=== PATIENT | male | born 1990 | race Caucasian/White ===

== ENCOUNTER 2021-04-21 12:34 | Emergency (ER) | payer BC, SELFPAY ==
--- NOTE | 2021-04-21 12:37 | ECG_ITS ---
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 Measurements Intervals [place] Rate: 92 P: 1 ID: 133 QRS: 7 QRSD: 106 T: 28 QT: 330 QTc: 409 Interpretive Statements SINUS RHYTHM WITH SINUS ARRHYTHMIA NONSPECIFIC T-WAVE ABNORMALITY WARNING: DATA QUALITY MAY AFFECT INTERPRETATION No previous ECG available for comparison Electronically Signed On 04-21-2021 16:26:43 CDT by Deb Cox M.D. [id number]
--- NOTE | 2021-04-21 12:38 | XR_ITS ---
WS: [id number] Portable AP upright chest, 04/21/2021 Clinical Data: Cough Comparison: PA and lateral chest, 04/23/2006. Findings: No nodules, masses or effusions are seen. The heart is normal. The pulmonary vascularity is not increased. No pneumonia or pneumothorax is seen. Monitor leads are on the chest wall. XR/XR chest 1V portable [id number] Impression: Negative chest.
--- NOTE | 2021-04-21 12:38 | W.ED.CHESTPA ---
HPI - Chest Pain General: Chief Complaint: Chest Pain Stated Complaint: CHEST PRESSURE, TIGHTNESS Time Seen by Provider: 04/21/21 12:37 History of Present Illness: HPI narrative: This patient has a 30-year-old male who presents to the emergency department complaint of chest pain and chest pressure. Dizziness and nausea. 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 Patient is physically fit and recently had a physical set a good bill of health and has never had any medical problems. Patient states this chest pressure and heaviness come on suddenly. Chest pressure and heaviness was resolved after 2 nitros. Patient was also given full aspirin. Patient is concerned because family members on his mother side all had major heart attacks at the age of 40 or younger. Patient denies smoking denies heavy drinking. Does dip snuff daily. We will do medical evaluation treat as needed. Patient works for [employer]. MD complaint: chest pain, chest heaviness and chest discomfort Onset (ago): hour(s) Timing of current episode: now resolved Prior episodes: No Onset: during exertion Pain location: substernal Pain radiation: none Severity: moderate Pain scale (0-10): 6 Quality: aching, heaviness and dull Relieving factors: nitroglycerin Exacerbating factors: exertion Associated symptoms: Reports dyspnea and nausea; Deny fever(s) or palpitations Review of Systems General: Reports: 10 or more systems reviewed and unremarkable except in HPI and below Const: Denies: fever(s), chills, body aches or fatigue Eyes: Denies: change in vision or blurry vision ENMT: Denies: throat pain, hoarseness or mouth pain Card: Reports: chest pain; Denies: palpitations, irregular heart rhythm, edema, swelling of feet/ankles or lightheadedness Resp: Reports: dyspnea GI: Reports: nausea : Denies: flank pain, dysuria, urinary frequency, urinary urgency or urinary hesitancy Musc: Denies: neck pain, back pain, extremity pain, extremity swelling, joint pain, joint swelling, joint redness, joint warmth or limited range of motion Skin/Breast: Denies: rash, pruritus, erythema or skin tenderness Neuro: Denies: headache(s), numbness in extremities or weakness in extremities Psych: Denies: anxiety or depression PFSH ED PFSH: Social History Smoking and tobacco status: current every day smoker smokeless tobacco Alcohol intake: current Alcohol intake frequency: holidays/special occasions only Physical Exam Const: COMMON NORMALS: no acute distress, average body habitus, patient oriented x3, no limitations, healthy appearing, alert and well nourished HENMT: COMMON NORMALS: normocephalic, atraumatic, hearing grossly normal bilaterally, external ears normal, EAC's normal, TM's normal bilaterally, Normal external nose present, Normal nasal mucous membranes and turbinates present, moist oral mucous membranes, oropharynx normal, dentition normal and gingiva normal HEAD & SCALP: normocephalic and atraumatic NOSE: Normal external nose present and Normal nasal mucous membranes and turbinates present EXTERNAL EAR: Yes external ears normal EXTERNAL AUDITORY CANAL: EAC's normal TYMPANIC MEMBRANE: TM's normal bilaterally Neck/C-Spine: COMMON NORMALS: full ROM, no lymphadenopathy, supple, no meningeal signs, no JVD, Thyroid normal and No carotid bruits THYROID: Thyroid normal Chest: COMMONS NORMALS: normal inspection of the chest, normal palpation of entire chest wall, normal inspection of the breasts and normal palpation of the breasts Breast/axilla inspection: Yes normal inspection of the breasts BREAST/AXILLA PALPATION: Yes normal palpation of the breasts Resp: COMMON NORMALS: normal respiratory effort, No retractions, No use of accessory muscles, clear to auscultation bilaterally and percussion normal AUSCULTATION: clear to auscultation bilaterally PERCUSSION: percussion normal Cardio: COMMON NORMALS: no JVD, regular rate, regular rhythm, S1 normal heart sound present, S2 normal heart sound present, No gallops present (Cardio), No clicks present (Cardio), No murmurs present (Cardio), No rub (Cardio) and Peripheral pulses 2+ throughout RATE: regular rate RHYTHM: regular rhythm HEART SOUNDS: S1 normal heart sound present and S2 normal heart sound present PERIPHERAL PULSES: Peripheral pulses 2+ throughout GI: COMMON NORMALS: Normal to inspection, nondistended, normoactive bowel sounds present, Soft to palpation, non-tender, No hepatosplenomegaly present, no masses and no bruits PALPATION: Yes Soft to palpation and Yes No hepatosplenomegaly present : COMMON NORMALS: Yes no CVA tenderness BLADDER/KIDNEY EXAM: Yes no CVA tenderness Back/Pelvis: COMMON NORMALS: no CVA tenderness, thoracic and lumbar spine normal to inspection, no thoracic nor lumbar tenderness, thoraco-lumbar ROM normal and straight leg raise negative bilaterally Extremity: COMMON NORMALS: normal to inspection, full ROM, capillary refill normal, no joint enlargement, no clubbing, cyanosis or edema, no calf tenderness and no pedal edema Neuro: COMMON NORMALS: patient oriented x3 SENSORIUM/ORIENTATION: Yes alert MENINGEAL SIGNS: Yes no meningeal signs Course Reevaluation(s): Reevaluation #1: Patient states feeling much improved. States he did not receive IV morphine was ordered. Patient does have a long history of gastric reflux issues. We did discuss at length with options. Patient has had negative EKG negative chest x-ray negative lab values. We will wait on a 2-hour troponin. However we will give the patient a GI cocktail. We will continue to monitor patient Time: 13:51 Reevaluation #2: Patient is feeling much improved. States he feels great. States he did not like the taste of GI cocktail but has improved his symptoms. Patient does have a long history of reflux. Patient blood pressure been running around 140 systolic. Discussed at length with patient about high blood pressure issues patient will keep a blood pressure log as instructed. Try to cut out salt and energy drinks and caffeine. Patient will follow up with PCP about blood pressure issues. We did discuss at length with patient about following up with cardiology for an outpatient stress test and also following up with GI for his reflux issues. Patient be discharged home per his request Time: 14:37 Vital Signs: Vital signs: Vital Signs Temperature 98.0 F 04/21/21 12:39 Pulse Rate 102 H 04/21/21 12:39 Respiratory Rate 18 04/21/21 12:39 Blood Pressure 146/69 04/21/21 12:39 Pulse Oximetry 97 04/21/21 12:39 MDM - Chest Pain MDM Narrative: Medical decision making narrative: This patient has a 30-year-old male who presents to the emergency department complaint of chest pain and chest pressure. Dizziness and nausea. 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 Patient is physically fit and recently had a physical set a good bill of health and has never had any medical problems. Patient states this chest pressure and heaviness come on suddenly. Chest pressure and heaviness was resolved after 2 nitros. Patient was also given full aspirin. Patient is concerned because family members on his mother side all had major heart attacks at the age of 40 or younger. Patient denies smoking denies heavy drinking. Does dip snuff daily. We will do medical evaluation treat as needed. Patient works for [employer]. Patient states feeling much improved. States he did not receive IV morphine was ordered. Patient does have a long history of gastric reflux issues. We did discuss at length with options. Patient has had negative EKG negative chest x-ray negative lab values. We will wait on a 2-hour troponin. However we will give the patient a GI cocktail. We will continue to monitor patient Patient is feeling much improved. States he feels great. States he did not like the taste of GI cocktail but has improved his symptoms. Patient does have a long history of reflux. Patient blood pressure been running around 140 systolic. Discussed at length with patient about high blood pressure issues patient will keep a blood pressure log as instructed. Try to cut out salt and energy drinks and caffeine. Patient will follow up with PCP about blood pressure issues. We did discuss at length with patient about following up with cardiology for an outpatient stress test and also following up with GI for his reflux issues. Patient be discharged home per his request Medical Records: Attestation: I reviewed the patient's medical records. Lab Data: Attestation: I reviewed the patient's lab results. Labs: Lab Results 04/21/21 04/21/21 04/21/21 Range/Units 12:55 12:55 12:55 WBC 9.8 (4.0-10.0) 10^3/ uL RBC 5.04 (4.1-5.3) 10^6/u L Hgb 14.8 (11.7-16.6) g/dL Hct 41.8 L (42.0-52.0) % MCV 82.9 (80-94) fL MCH 29.4 (28.0-34.0) pg MCHC 35.4 (30.0-36.0) g/dL RDW 12.3 (12.1-15.1) % Plt Count 261 (130-400) 10^3/c mm MPV 10.8 H (7.4-10.4) fL Neut % (Auto) 84.2 % Lymph % (Auto) 11.4 % Dickson % (Auto) 3.7 % Eos % (Auto) 0.0 % Baso % (Auto) 0.4 % Neut # (Auto) 8.25 H (1.8-7.7) 10^3/u L Lymph # (Auto) 1.1 (0.8-4.8) 10^3/u L Dickson # (Auto) 0.4 (0.2-0.9) 10^3/u L Eos # (Auto) 0.0 (0.0-0.8) 10^3/u L Baso # (Auto) 0.0 (0.0-0.1) 10^3/u L Nucleated RBC % (a uto) 0 % Nucleated RBCs # 0.0 /100WBC PT (12.1-14.9) SECO NDS INR (0.8-1.2) APTT (23.9-36.7) SECO NDS D-Dimer (0-0.59) ug/mIFE U Sodium 136 (136-145) mmol/L Potassium 4.0 (3.5-5.1) mmol/L Chloride 99 (98-107) mmol/L Carbon Dioxide 24 (22-29) mmol/L Anion Gap 17.0 (5-19) BUN 11 (6-20) mg/dL Creatinine 0.8 (0.7-1.2) mg/dL GFR Calculation 112.8 (90-130) mL/min Glucose 162 H (65-115) mg/dL Calculated Osmolal ity 285 (285-295) mOsm/k g Calcium 9.3 (8.5-10.5) mg/dL Total Bilirubin 0.3 (0.15-1.2) mg/dL AST 19 (0-40) U/L ALT 19 (0-41) U/L Alkaline Phosphata se 51 (40-130) IU/L Troponin T Baselin e 6 (0-15) ng/L NT-Pro-B Natriuret Pep 14 (0-125) pg/mL Total Protein 6.8 (6.6-8.7) g/dL Albumin 5.2 (3.5-5.2) g/dL Globulin 1.6 (1.3-4.6) g/dL 04/21/21 Range/Units 13:00 WBC (4.0-10.0) 10^3/ uL RBC (4.1-5.3) 10^6/u L Hgb (11.7-16.6) g/dL Hct (42.0-52.0) % MCV (80-94) fL MCH (28.0-34.0) pg MCHC (30.0-36.0) g/dL RDW (12.1-15.1) % Plt Count (130-400) 10^3/c mm MPV (7.4-10.4) fL Neut % (Auto) % Lymph % (Auto) % Dickson % (Auto) % Eos % (Auto) % Baso % (Auto) % Neut # (Auto) (1.8-7.7) 10^3/u L Lymph # (Auto) (0.8-4.8) 10^3/u L Dickson # (Auto) (0.2-0.9) 10^3/u L Eos # (Auto) (0.0-0.8) 10^3/u L Baso # (Auto) (0.0-0.1) 10^3/u L Nucleated RBC % (a uto) % Nucleated RBCs # /100WBC PT 13.30 (12.1-14.9) SECO NDS INR 0.98 (0.8-1.2) APTT 24.8 (23.9-36.7) SECO NDS D-Dimer <= 0.27 (0-0.59) ug/mIFE U Sodium (136-145) mmol/L Potassium (3.5-5.1) mmol/L Chloride (98-107) mmol/L Carbon Dioxide (22-29) mmol/L Anion Gap (5-19) BUN (6-20) mg/dL Creatinine (0.7-1.2) mg/dL GFR Calculation (90-130) mL/min Glucose (65-115) mg/dL Calculated Osmolal ity (285-295) mOsm/k g Calcium (8.5-10.5) mg/dL Total Bilirubin (0.15-1.2) mg/dL AST (0-40) U/L ALT (0-41) U/L Alkaline Phosphata se (40-130) IU/L Troponin T Baselin e (0-15) ng/L NT-Pro-B Natriuret Pep (0-125) pg/mL Total Protein (6.6-8.7) g/dL Albumin (3.5-5.2) g/dL Globulin (1.3-4.6) g/dL Imaging Data^: CXR: Attestation: I personally reviewed and interpreted this imaging study as follows: Radiologist's impression: Impression: Negative chest. EKG Data^: EKG 1: Attestation: I personally reviewed and interpreted this EKG as follows: EKG interpretation date: 04/21/21 EKG interpretation time: 12:50 Prior EKG tracings: not available for review Ischemic changes: non-specific ST-T wave changes Interpretation: Sinus rhythm with sinus arrhythmia heart rate 92 nonspecific T wave changes. Borderline EKG EKG 2: Attestation: I personally reviewed and interpreted this EKG as follows: EKG interpretation date: 04/21/21 EKG interpretation time: 14:28 Prior EKG tracings: available for review Interpretation: Normal sinus rhythm heart rate 77 nonspecific EKG changes Discharge Plan Discharge Patient Disposition: Home Clinical Impression: Atypical chest pain, Gastroesophageal reflux disease, Benign essential HTN Condition: Stable Prescriptions: No Action No Known Home Medications RF: 0 Discharge Orders: Discharge ED (Routine); Ordered 04/21/21 Ordered By: Juan Antonio Cook Referrals: Elton Garcia MD [Physician] - Jeremie Garrison M.D [Physician] - Discharge Diet: Advance as tolerated Discharge Activity: Resume usual activity Patient Instructions: Opioid Safety Activity Restrictions/Additional Instructions: Encourage p.o. fluids. Try to avoid salt caffeine and energy drinks. Follow-up with cardiology as instructed for possible outpatient evaluation and stress test. Follow-up with GI as needed for possible EGD. For chronic gastric reflux disease. Return to the emergency department if symptoms fail to improve or worsen. Coding Level of Care Code ED Webfed Offset Press Operator for Chg Fwd Exam Comprehensive
[2021-04-21 12:39] VITALS: BP 146/69; PULSE 102; RESP 18; TEMP 36.7; O2SAT 97; BMI 32.1
[2021-04-21] MEDS: sodium chloride 0.9% 500 ML IV (12:59)
[2021-04-21 13:02] LABS: Basophils % 0.4 %; Hematocrit 41.8 % (42.0-52.0); Hemoglobin 14.8 g/dL (11.7-16.6); Lymphocytes # 1.1 10^3/uL (0.8-4.8); Lymphocytes % 11.4 %; Mean Corpuscular HGB Conc 35.4 g/dL (30.0-36.0); Mean Corpuscular Hemoglobin 29.4 pg (28.0-34.0); Mean Corpuscular Volume 82.9 fL (80-94); Mean Platelet Volume 10.8 fL (7.4-10.4); Monocytes # 0.4 10^3/uL (0.2-0.9); Monocytes % 3.7 %; Neutrophils # 8.25 10^3/uL (1.8-7.7); Neutrophils % 84.2 %; Nucleated Red Blood Cells % 0 %; Platelet Count 261 10^3/cmm (130-400); Red Blood Count 5.04 10^6/uL (4.1-5.3); Red Cell Distribution Width 12.3 % (12.1-15.1); White Blood Count 9.8 10^3/uL (4.0-10.0)
[2021-04-21 13:27] LABS: Troponin(5th) Baseline 6 ng/L (0-15)
[2021-04-21 13:29] LABS: INR 0.98 (0.8-1.2)
[2021-04-21 13:30] LABS: Partial Thromboplastin Time 24.8 SECONDS (23.9-36.7)
[2021-04-21 13:33] LABS: D Dimer <= 0.27 ug/mIFEU (0-0.59)
[2021-04-21 13:34] LABS: Alanine Aminotransferase 19 U/L (0-41); Albumin Level 5.2 g/dL (3.5-5.2); Alkaline Phosphatase 51 IU/L (40-130); Aspartate Amino Transferase 19 U/L (0-40); Blood Urea Nitrogen 11 mg/dL (6-20); Calcium 9.3 mg/dL (8.5-10.5); Carbon Dioxide 24 mmol/L (22-29); Chloride 99 mmol/L (98-107); Globulin 1.6 g/dL (1.3-4.6); Glomerular Filtration Rate 112.8 mL/min (90-130); Glucose 162 mg/dL (65-115); NT Pro B Type Natriuretic Pept 14 pg/mL (0-125); Osmolality Calculated 285 mOsm/kg (285-295); Sodium 136 mmol/L (136-145); Total Bilirubin 0.3 mg/dL (0.15-1.2); Total Protein 6.8 g/dL (6.6-8.7)
[2021-04-21] MEDS: lidocaine 2% viscous 15 ML, aluminum-mag hydrox-simethicon 30 ML, sucralfate oral liq 1 GM PO (14:18)
--- NOTE | 2021-04-21 14:37 | ECG_ITS ---
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 Measurements Intervals [place] Rate: 77 P: 46 TN: 186 QRS: 7 QRSD: 99 T: 15 QT: 364 QTc: 413 Interpretive Statements SINUS RHYTHM POSSIBLE LEFT VENTRICULAR HYPERTROPHY [VOLTAGE CRITERIA PLUS LAE OR QRS WIDENING] Compared to ECG 04/21/2021 12:50:01 Sinus arrhythmia no longer present T-wave abnormality no longer present Electronically Signed On 04-21-2021 16:32:19 CDT by Deb Cox M.D. [id number]
[2021-04-21 15:15] VITALS: BP 143/75; PULSE 80; RESP 22; O2SAT 94
--- NOTE | 2021-04-21 15:16 | PC.NURSE ---
vitals printed in chart
== END 2021-04-21 15:16 | disposition home or self-care (01) ==
PROVIDERS: Emergency Provider Emergency Medicine
DX: R07.89 Other chest pain (principal); K21.9 Gastro-esophageal reflux disease without esophagitis; I10 Essential (primary) hypertension; F17.210 Nicotine dependence, cigarettes, uncomplicated
CPT/HCPCS: 71045; 80053; 83880; 84484; 85025; 85378; 85610; 85730; 93005; 96361; 96374; 96375; 99284; J7040

== ENCOUNTER 2021-04-22 09:00 | Outpatient (CLI) | payer BC, SELFPAY | END 2021-04-22 09:01 | disposition home or self-care (01) | LOC: LAB 05-19 16:08 | PROVIDERS: PCP Nurse Practitioner Family; Visit Provider Nurse Practitioner Family | DX: R07.89 Other chest pain (principal); I10 Essential (primary) hypertension | CPT/HCPCS: 80061; 83036; 84443 ==

== ENCOUNTER 2021-04-29 09:35 | Outpatient (CLI) | payer BC, SELFPAY ==
[2021-04-29 09:50] VITALS: BMI 32.1
--- NOTE | 2021-04-29 09:51 | NMCV_ITS ---
NM rayo perf SPECT r/s* [id number] Boris Lemus Age: 30 Gender: M : 1990 Exam Date: 04/29/2021 11:18 Ordering Phys: Lisa Loving APRN Technologist: KENDRICK Patterson Exam [facility]: [facility] Indications: CHEST PAIN STRESS TEST [facility] IMAGE PROTOCOL Rest/Stress 1 Exercise Day Radiopharmaceutical Dose (mCi) Administration Site Administered by Rest: Tc-99m 10.6 IV KENDRICK Garrett Sestamibi Stress:Tc-99m 32.6 IV KENDRICK Garrett Sestamibi Rest: 29-Apr-2021 60 Discovery 630 Stress: 29-Apr-2021 15 Discovery 630 Radiopharmaceutical was injected at 85 % maximum heart rate. Images obtained in supine and prone position. SPECT RESULTS Technical Quality: Excellent Raw Data Analysis: Normal Image Corrections: No attenuation or motion correction applied Summed Stress Score: 0 Summed Rest Score: 0 Summed Difference Score: 0 PERFUSION FINDINGS Resting images showed no change in the pattern of perfusion compared to stress. FUNCTIONAL RESULTS (calculated via Gated SPECT) Stress Image LV EF (%): 67 Stress EDV (mL):101 TID: 0.67 Stress ESV (mL):33 FUNCTIONAL FINDINGS: The left ventricle is normal in size. Transient Ischemia Dilatation of 0.67. There is normal left ventricular systolic function. The left ventricular ejection fraction is normal with a value of 67%. There is normal left ventricular wall thickening with no regional wall motion abnormality. Normal end-diastolic and end-systolic volume. IMPRESSIONS 1. Myocardial perfusion imaging is normal. 2. Overall left ventricular systolic function is normal without regional wall motion abnormalities. 3. The left ventricular ejection fraction is normal with a value of 67%. 4. Excellent exercise tolerance with normal EKG response. Refer to separate report for details. 5. Scan indicates low risk for cardiac events. Deb Cox MD (Electronically Signed) Final Date: 03 May 2021 11:07 S
--- NOTE | 2021-04-29 09:51 | ECG_ITS ---
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 Interpretive Statements NAME OF STUDY: EXERCISE SESTAMIBI STRESS TEST INDICATION: Chest Pain Baseline blood pressure of 133/88 mm Hg, heart rate 65 beats per minute and oxygen saturation of 95%. EKG showed normal sinus rhythm, normal axis with normal ST-Ts. The patient exercised for 12 minutes on a standard Toni protocol. Patient attained a maximum heart rate of 179 beats per minute(94% of the maximum predicted heart rate) with a blood pressure at the peak exercise of 213/66 mm Hg and oxygen saturation of 96%. The EKG at the peak exercise revealed sinus tachycardia with no significant ST-T wave changes. Patient did not have any chest pain or any significant arrhythmis with the exercise. Study was terminated due to exertional fatigue and shortness of breath. During the recovery phase, there were no new changes. Blood pressure at the end of the recovery phase was 159/99 mm Hg with a heart rate of 93 beats per minute and oxygen saturation of 96%. CONCLUSION: 1. Normal EKG response to treadmill exercise. 2. No exercise-induced chest pain or cardiac arrhythmia 3. Excellent exercise tolerance, attained a maximum of 13.5 METs. Maximum VO2 of 47.3 mL/kg/min. 4. Baseline normal blood pressure with normal response to exercise. 5. Lyons treadmill score of 12 suggestive of low risk. 6. Perfusion scan will be documented separately. Electronically Signed On 05-03-2021 11:06:26 CDT by Deb Cox M.D. [id number]
[2021-04-29 12:47] VITALS: BP 193/99; PULSE 93
== END 2021-04-29 09:36 | disposition home or self-care (01) ==
PROVIDERS: Visit Provider Nurse Practitioner Family
DX: R07.9 Chest pain, unspecified (principal)
CPT/HCPCS: 78452; 80061; 83036; 84443; 93017; A9500

== ENCOUNTER 2021-05-07 07:44 | Outpatient (CLI) | payer BC, SELFPAY ==
--- NOTE | 2021-05-07 08:00 | USCV_ITS ---
Mariah Boris Age: 30 Gender: M : 1990 Exam Date: 05/07/2021 08:21 Ordering Phys: Lisa Loving APRN Technologist: Claire Loera [place] [facility] [place]ication: atypical chest pain, family hx of sudden cardiac BP: / HR: 68 Rhythm: Sinus Technical Quality: Good MEASUREMENTS (Male / Female) Normal Values 2D ECHO LV Diastolic Diameter PLAX 4.9 cm 4.2 - 5.9 / 3.9 - 5.3 cm LV Systolic Diameter PLAX 2.8 cm IVS Diastolic Thickness 1.0 cm 0.6 - 1.0 / 0.6 - 0.9 cm IVS Systolic Thickness 1.3 cm LVPW Diastolic Thickness 0.7 cm 0.6 - 1.0 / 0.6 - 0.9 cm LVPW Systolic Thickness 1.6 cm LVOT Diameter 2.2 cm LV Ejection Fraction 2D Teich 73.3 % LV Ejection Fraction MOD 2C 61.8 % LV Ejection Fraction 2C AL 61.7 % LA Diameter 3.6 cm LA Width 3.0 cm LA Height 4.8 cm RA Width 3.1 cm RA Height 4.3 cm Aorta at Sinotubular Diameter 2.8 cm M-MODE LV Diastolic Diameter MM 5.5 cm 4.2 - 5.9 / 3.9 - 5.3 cm LV Systolic Diameter MM 2.8 cm LV Ejection Fraction MM Teich 80.0 % IVS Diastolic Thickness MM 0.9 cm 0.6 - 1.0 / 0.6 - 0.9 cm IVS Systolic Thickness MM 1.5 cm LVPW Diastolic Thickness MM 0.7 cm 0.6 - 1.0 / 0.6 - 0.9 cm LVPW Systolic Thickness MM 1.6 cm Aortic Annulus Diameter 2.8 cm LA Ao Ratio MM 1.3 MV E Point Septal Separation 0.3 cm DOPPLER AV Peak Velocity 106.0 cm/s LVOT Peak Velocity 86.0 cm/s AV Area Cont Eq vti 3.3 cm squared AV Area Cont Eq pk 3.1 cm squared MV Peak Velocity 96.0 cm/s MV Area PHT 5.4 cm squared Mitral E to A Ratio 2.2 MV E' Velocity 62.5 cm/s Mitral E to MV E' Ratio 7.0 Mitral E to LV E' Lateral Ratio 5.7 Mitral E to LV E' Septal Ratio 9.1 PV Peak Velocity 60.0 cm/s RV Acceleration Time 0.1 s RV Ejection Time 0.3 s RV AcT/ET 0.5 FINDINGS Left Ventricle Normal left ventricular size. LV systolic function is normal with EF of 55-60%. No regional wall motion abnormalities. Normal diastolic filling pattern. Right Ventricle The right ventricle is normal in size and function. Right Atrium The right atrium is normal in size. Left Atrium The left atrium is normal in size. Mitral Valve Structurally normal mitral valve without significant stenosis or prolapse. There is no mitral regurgitation. Aortic Valve Structurally normal aortic valve without significant sclerosis or stenosis. There is no aortic regurgitation. Tricuspid Valve Structurally normal tricuspid valve without significant stenosis or regurgitation. Insufficient TR jet to calculate RVSP Pulmonic Valve Structurally normal pulmonic valve without significant stenosis. There is no pulmonic regurgitation. Pericardium Normal pericardium without effusion. Aorta Normal ascending aorta dimension. CONCLUSIONS LV systolic function is normal with EF of 55-60% Diastolic function is normal No significant valvular heart disease No comparison studies are available Jeremie Garrison MD (Electronically Signed) Final Date: 17 May 2021 15:41 S
== END 2021-05-07 07:45 | disposition home or self-care (01) ==
PROVIDERS: PCP Nurse Practitioner Family; Visit Provider Nurse Practitioner Family
DX: R07.89 Other chest pain; Z82.41 Family history of sudden cardiac death
CPT/HCPCS: 93306

== ENCOUNTER 2021-06-14 07:47 | Day surgery (SDC) | payer BC, SELFPAY ==
[2021-06-11 09:00] VITALS: BMI 31.9
--- NOTE | 2021-06-14 08:04 | ANES.PREANE2 ---
Pre-Anesthetic Assessment Pre-Anesthetic Assessment: Height/Weight: Height 1.7 m Weight 92.533 kg Preop Diagnosis: Chest pains Proposed Procedure: Operation Date: 06/14/21 09:00 Proposed Procedures p EGD [id number] k21.9(Not Applicable) - Elton Garcia MD Familial anesthetic complications: None Was Beta Marcela taken within 24 hours: N/A Was Clonidine taken within 24 hours: N/A Last intake: > 8 hrs Social: Social History: No alcohol and No tobacco Comment: former smoker (social) Exam: Pre-Anes Outpt Exam: alert, oriented x 3, clear to auscultation bilaterally and regular rate & rhythm Airway: Cervical ROM: WNL MP: 2 Dentition: Full Additional comments: full delgado GI: GI: GERD (occassional) Anesthetic Plan: ASA status: 1 Anesthesia: MAC Risk of > 500 ml blood loss (7ml/kg in children): No PFSH Anesthesia PFSH: Medical History Tobacco abuse Family History Other CAD (coronary artery disease) Social History Smoking and tobacco status: current every day smoker smokeless tobacco Alcohol intake: former Last alcohol use date: 03/13/18 Substance/Drug Use: never Household members: spouse and children Marital status: Data Anesthesia Cardiac Studies: Holter Monitor 04/30/21
[2021-06-14] MEDS: sodium chloride 0.9% 1,000 ML 30 ML IV (08:05)
[2021-06-14 08:22] VITALS: BP 142/96; PULSE 61; RESP 16; TEMP 36.2; O2SAT 98
--- NOTE | 2021-06-14 09:24 | P.HP_ITS ---
Same Day Surgery H&P Indication for Procedure/HPI DATE OF PROCEDURE: June 14, 2021 CHIEF COMPLAINT/INDICATIONFOR SURGICAL PROCEDURE: Noncardiac chest pain. PREOP DIAGNOSIS: Chest pains PLANNED PROCEDRUE: Operation Date: 06/14/21 09:00 Proposed Procedures p EGD 16742 k21.9(Not Applicable) - Elton Garcia MD Medications/Allergies* Home Medications Medication Instructions Recorded Confirmed Type levothyroxine [L-Thyroxine] 200 mcg PO DAILY 06/11/21 06/14/21 History omeprazole 20 mg PO DAILY 06/11/21 06/14/21 History Allergies/Adverse Reactions Allergy/AdvReac Type Severity Reaction Status Date / Time No Known Allergies Allergy Verified 06/11/21 08:55 Pertinent History/Comorbid Conditions* Medical History (Updated 05/17/21 @ 19:46 by eJremie Garrison M.D) Tobacco abuse Family History (Updated 05/17/21 @ 19:41 by Jeremie Garrison M.D) CAD (coronary artery disease) Social History Smoking and tobacco status: current every day smoker smokeless tobacco Alcohol intake: former Last alcohol use date: 03/13/18 Substance/Drug Use: never Household members: spouse and children Marital status: Pertinent Exam Findings alert, oriented x 3, clear to auscultation bilaterally, regular rate & rhythm, operative site marked and procedure specific exam findings Recommendations Surgery/Procedure today Coding Level of Care Code Acute Wholesale Account Manager for Benny Zaragoza
[2021-06-14 09:37] VITALS: BP 110/63; PULSE 58; RESP 18; TEMP 36.3; O2SAT 97
[2021-06-14 09:52] VITALS: BP 114/69; PULSE 58; RESP 16; TEMP 36.3; O2SAT 98
--- NOTE | 2021-06-14 19:25 | ANE.PACU2 ---
Inpatient post-anesthesia follow up: Airway intact: Yes Vital signs: Temperature 97.3 F Pulse Rate 58 Respiratory Rate 16 Blood Pressure 114/69 Pulse Oximetry 98 Oxygen Delivery Me thod Room Air Oxygen Flow Rate 3 Fraction of Inspir ed Oxygen Hydration adequate: Yes Nausea and vomiting: No Pain level: 2 Mental status: Baseline
[2021-06-15 07:45] LABS: H. Pylori / CLO Test Negative
== END 2021-06-14 10:10 | disposition home or self-care (01) ==
PROVIDERS: PCP Nurse Practitioner Family; Visit Provider Internal Medicine
PROC: 0DJ08ZZ Inspection of Upper Intestinal Tract, Via Natural or Artificial Opening Endoscopic (ICD-10-PCS; CPT 43235; principal; 2021-06-14 09:00)
DX: K25.7 Chronic gastric ulcer without hemorrhage or perforation (principal); R07.9 Chest pain, unspecified; F17.210 Nicotine dependence, cigarettes, uncomplicated; Z82.49 Family history of ischemic heart disease and other diseases of the circulatory system; F17.290 Nicotine dependence, other tobacco product, uncomplicated
CPT/HCPCS: 43239; 87077; 96360; 96361; J2704; J7030

== ENCOUNTER 2022-01-13 12:55 | Outpatient (CLI) | payer OTHER, SELFPAY ==
--- NOTE | 2022-01-13 13:18 | XR_ITS ---
WS: [id number] Right rib detail, 3 views, 01/13/2022 Clinical Data: R RIB PAIN AFTER FALL Comparison: None. Findings: The ribs are intact. There are no rib fractures. No subcutaneous emphysema or right lung pneumothorax is seen. XR/XR ribs RT 2V* [id number] Impression: Negative right rib detail.
== END 2022-01-13 12:56 | disposition home or self-care (01) ==
LOC: RAD 13:02
PROVIDERS: PCP Nurse Practitioner Family; Visit Provider Nurse Practitioner Family
DX: R07.81 Pleurodynia (principal); W19.XXXA Unspecified fall, initial encounter
CPT/HCPCS: 71100

== ENCOUNTER 2022-11-08 13:36 | Outpatient (CLI) | payer BC, SELFPAY ==
--- NOTE | 2022-11-08 13:39 | ECG_ITS ---
[facility] Test Date: 2022-11-08 Pat Name: Boris Lemus Department: Room: Gender: Male Alarm Operator: Nancy Ghotra : 1990 Requested By: Michael López Order Number: [id number] Barry MD: Deb Cox M.D. Interpretive Statements NAME OF STUDY: TREADMILL STRESS TEST INDICATION: Chest Pain, Transient Htn Baseline blood pressure of 138/94 mm Hg, heart rate of 84 beats per minute and oxygen saturation of 95%. EKG showed sinus rhythm, normal axis with nonspecific T wave inversion in lead III and aVF and V6. The patient exercised for 11 minutes 42 seconds on a standard Toni protocol. Patient attained a maximum heart rate of 176 beats per minute(94% of the maximum predicted heart rate) with a blood pressure at the peak exercise of 250/120 mm Hg and oxygen saturation of 95%. The EKG at the peak exercise revealed sinus tachycardia with no significant ST-T wave changes. T waves in lead III, aVF and V6 are upright now. Patient did not have any chest pain or any significant arrhythmis with the exercise. The study was terminated due to maximal effort. During the recovery phase, there were no new changes. Blood pressure at the end of the recovery phase was 151/90 mm Hg with a heart rate of 95 beats per minute and oxygen saturation 97%. CONCLUSION: 1. Normal EKG response to treadmill exercise. 2. No exercise-induced chest pain or cardiac arrhythmia 3. Excellent exercise tolerance, attained a maximum of 13.5 METs. 4. Baseline hypertension with hypertensive response to exercise. 5. Lyons treadmill score of 11.5, suggestive of low risk. Electronically Signed On 11-09-2022 13:49:46 MOLD STACKER by Deb Cox M.D. [email or web address]
[2022-11-08 13:45] VITALS: BMI 35.2
[2022-11-08 14:27] VITALS: BP 151/90; PULSE 95
== END 2022-11-08 13:37 | disposition home or self-care (01) ==
LOC: CDL 13:37
PROVIDERS: PCP Internal Medicine; Visit Provider Internal Medicine Cardiovascular Disease
DX: R07.9 Chest pain, unspecified (principal); I10 Essential (primary) hypertension
CPT/HCPCS: 93017

== ENCOUNTER 2022-11-09 10:22 | Day surgery (SDC) | payer BC, SELFPAY ==
[2022-11-03 09:00] VITALS: BMI 36.0
--- NOTE | 2022-11-09 10:30 | ANES.PREANE2 ---
Pre-Anesthetic Assessment Height/Weight: Height 1.7 m Weight 104.326 kg Preop Diagnosis: Chest pains Operation Date: 11/09/22 10:45 Proposed Procedures p EGD 90390,K21.9(Not Applicable) - Fabrice Acuna DO Familial anesthetic complications: none Was Beta Marcela taken within 24 hours: N/A Was Clonidine taken within 24 hours: N/A Last Intake: 22:00 Social No alcohol and No tobacco Exam alert, oriented x 3, clear to auscultation bilaterally and regular rate & rhythm Airway Submandibular: within normal limits Cervical ROM: within normal limits Mallampati: Class II Dentition: full Pulmonary None reported CV/HEM None reported None reported Hepatic None reported GI Gastroesophageal Reflux Disease Metabolic None reported Musc/skel None reported Neuropsych Anxiety Anesthetic Plan ASA status: 1 Anesthesia: MAC Risk of > 500 ml blood loss (7ml/kg in children): No Medications/Allergies Home Medications Medication Instructions Recorded Confirmed Last Taken Type pantoprazole 40 mg tablet,delayed 40 mg PO DAILY #90 tabs 08/10/22 11/03/22 11/09/22 Rx release 60 billion probiotic 1 cap PO DAILY 09/15/22 11/03/22 11/03/22 History Allergies Allergy/AdvReac Type Severity Reaction Status Date / Time No Known Allergies Allergy Verified 11/03/22 08:57 [facility] Anesthesia Medical History (Updated 11/01/22 @ 08:33 by Fabrice Acuna DO) Bronchitis GERD (gastroesophageal reflux disease) Tobacco abuse Family History Other CAD (coronary artery disease) Social History (Updated 11/03/22 @ 08:59 by Sarah Cornell RN) Smoking and tobacco status: former smoker Quit status (tobacco): has quit using tobacco Alcohol intake: former Last alcohol use date: 03/13/18 Household members: spouse and children Marital status: Data Anesthesia Cardiac Studies: Echocardiogram Ultrasound 05/07/21 Sestamibi Stress Test (Cardiology) 04/29/21 Holter Monitor 04/30/21
--- NOTE | 2022-11-09 10:32 | W.PM.OPSUD ---
Surgery/Procedure H&P Update DATE OF PROCEDURE: November 09, 2022 DATE H&P PERFORMED: 11/01/22 PREOP DIAGNOSIS: Chest pains PLANNED PROCEDURE: Operation Date: 11/09/22 10:45 Proposed Procedures p EGD 66647,K21.9(Not Applicable) - Fabrice Acuna DO
[2022-11-09 10:34] VITALS: BP 159/97; PULSE 76; RESP 18; TEMP 36.4; O2SAT 98
[2022-11-09] MEDS: sodium chloride 0.9% 1,000 ML 30 ML IV (10:39)
[2022-11-09 11:22] VITALS: BP 118/74; PULSE 67; RESP 16; TEMP 36.6; O2SAT 99
[2022-11-09 11:35] VITALS: BP 117/78; PULSE 66; RESP 18; O2SAT 96
--- NOTE | 2022-11-09 12:07 | ANE.PACU2 ---
Inpatient post-anesthesia follow up: Airway intact: Yes Vital signs: Temperature 97.8 F Pulse Rate 66 Respiratory Rate 18 Blood Pressure 117/78 Pulse Oximetry 96 Oxygen Delivery Me thod Room Air Oxygen Flow Rate Fraction of Inspir ed Oxygen Hydration adequate: Yes Nausea and vomiting: No Pain level: 1 Mental status: Baseline
== END 2022-11-09 11:50 | disposition home or self-care (01) ==
PROVIDERS: PCP Internal Medicine; Visit Provider Surgery
PROC: 0DJ08ZZ Inspection of Upper Intestinal Tract, Via Natural or Artificial Opening Endoscopic (ICD-10-PCS; CPT 43235; principal; 2022-11-09 10:45)
DX: K21.9 Gastro-esophageal reflux disease without esophagitis (principal); K29.70 Gastritis, unspecified, without bleeding; Z87.891 Personal history of nicotine dependence; F41.1 Generalized anxiety disorder
CPT/HCPCS: 43239; 88305; J2704; J7030

== ENCOUNTER → 2023-02-27 14:07 | Outpatient (BNVA) | payer BC, SELFPAY | PROVIDERS: PCP Internal Medicine; Visit Provider Student in an Organized Health Care Education/Training Program | DX: M25.571 Pain in right ankle and joints of right foot (principal); M67.01 Short Achilles tendon (acquired), right ankle | CPT/HCPCS: 73610 ==

== ENCOUNTER 2023-02-27 15:58 | Outpatient (CLI) | payer BC, SELFPAY | END 2023-02-27 15:59 | disposition home or self-care (01) | LOC: SPT 15:58 | PROVIDERS: PCP Internal Medicine; Visit Provider Student in an Organized Health Care Education/Training Program | DX: Z46.89 Encounter for fitting and adjustment of other specified devices (principal); M25.571 Pain in right ankle and joints of right foot | CPT/HCPCS: 97760; L1902 ==

== ENCOUNTER 2023-04-12 06:05 | Outpatient (CLI) | payer BC, SELFPAY ==
--- NOTE | 2023-04-12 06:15 | US_ITS ---
WS: [id number] RIGHT UPPER QUADRANT ULTRASOUND HISTORY: ABDOMINAL PAIN COMPARISON: None available. Liver: 15.4 cm in length. Normal size liver and echogenicity. No bile duct dilatation or mass. Portal Vein: Normal hepatopetal flow with monophasic waveform. Gallbladder: Normally distended gallbladder with no stones or wall thickening. CBD: 0.4 cm Pancreas: Normal size and echogenicity. Right kidney: 11.4 cm in length. Normal size and echogenicity. No hydronephrosis or mass. Aorta and IVC: Unremarkable abdominal aorta and IVC. No ascites. US/US gall bladder [id number] IMPRESSION: Normal RIGHT upper quadrant ultrasound.
== END 2023-04-12 06:06 | disposition home or self-care (01) ==
PROVIDERS: PCP Internal Medicine; Visit Provider Surgery
DX: R10.9 Unspecified abdominal pain (principal)
CPT/HCPCS: 76705

== ENCOUNTER 2023-04-28 07:20 | Emergency (ER) | payer BC, SELFPAY ==
[2023-04-28 07:29] VITALS: BP 179/93; PULSE 97; RESP 16; TEMP 36.9; O2SAT 98; BMI 33.6
--- NOTE | 2023-04-28 07:30 | ED_ITS ---
HPI - Head Injury General: Chief complaint: Extremity Injury, Upper Stated complaint: injured finger Time Seen by Provider: 04/28/23 07:30 History of Present Illness: Mr. Lemus is a 32-year-old gentleman without significant past medical history presenting to the emergency department for finger injury. He was playing flag football last night and grabbed a flag and immediately had pain. He does not think that he jammed his finger though is unsure of exactly why he had pain. He used [id number]-mrt-[id number] medications for control of pain and placed finger in palmar surface finger splint however given abnormal appearance was concerned about tendon/ligament injury and presented today. He denies numbness or tingling or perfusion changes. Denies bleeding. No other specific changes in health, exacerbating, or alleviating factors identified. Onset (ago): day(s) Location of injury: other Severity: mild Other Injuries: upper extremity Review of Systems General: Reports: 10 or more systems reviewed and unremarkable except in HPI and below PFSH ED PFSH: Medical History Bronchitis GERD (gastroesophageal reflux disease) Tobacco abuse Family History Other CAD (coronary artery disease) Social History Smoking and tobacco status: former smoker Quit status (tobacco): has quit using tobacco Alcohol intake: former Last alcohol use date: 03/13/18 Substance/Drug Use: never Household members: spouse and children Marital status: Physical Exam Const: COMMON NORMALS: alert GENERAL APPEARANCE: cooperative and well developed HENMT: COMMON NORMALS: normocephalic and atraumatic HEAD & SCALP: normocephalic and atraumatic Eye: COMMON NORMALS: conjunctivae normal CONJUNCTIVA: Yes conjunctivae normal SCLERA: sclerae normal Neck/C-Spine: COMMON NORMALS: supple GENERAL: Yes trachea midline Resp: COMMON NORMALS: normal respiratory effort EFFORT & INSPECTION: Yes able to speak in complete sentences Cardio: COMMON NORMALS: regular rate and regular rhythm RATE: regular rate RHYTHM: regular rhythm Extremity: NARRATIVE EXTREMITY EXAM: Right third digit tenderness palpation was pronounced on volar surface of DIP joint. Inability to extend joint. No evidence of catching with limited passive range of motion. There is edema that extends down the finger about the PIP joint. Normal range of motion of PIP joint without tenderness. No other tenderness or reported symptoms. CMS intact. No evidence of open injury. GENERAL: Yes normal exam except as noted and No edema Neuro: COMMON NORMALS: moves all extremities SENSORIUM/ORIENTATION: Yes alert and No Orientation impaired Course Vital Signs: Vital signs: Vital Signs Temperature 98.4 F 04/28/23 07:29 Pulse Rate 97 04/28/23 08:13 Respiratory Rate 16 04/28/23 08:13 Blood Pressure 146/87 04/28/23 08:13 Pulse Oximetry 95 04/28/23 08:13 Oxygen Delivery Me thod Room Air 04/28/23 07:29 MDM - Head Injury Medcial Decision Making 32-year-old gentleman presenting with right third digit injury. Closed neurovascular intact. There is swelling and minimal ecchymosis. Mallet deformity present. X-ray negative for dislocation. Suspected avulsion fracture noted on lateral view of the proximal distal phalanx. Possible also nondisplaced fracture about the intra-articular surface. Placed in extension splint. Discussed with orthopedics and patient will be followed up in the outpatient clinic. The results of ED evaluation were discussed with the patient including prescriptions and/or symptomatic cares (if applicable) including appropriate and responsible use, followup plan, and return precautions. The patient verbalized understanding and felt safe for discharge. Medical Records I reviewed the patient's medical records. Lab Data I reviewed the patient's lab results. Radiology Impressions Finger X-Ray 04/28/23 07:34 IMPRESSION: Irregular linear lucency at base of distal phalanx of 3rd digit felt to represent fracture with small avulsed fragment projecting dorsal to distal interphalangeal joint on lateral view. Discharge Plan Discharge Patient Disposition: Home Clinical Impression: Mallet deformity of right middle finger Condition: Stable Prescriptions: No Action 60 billion probiotic 1 cap PO DAILY (DME) custom mallet finger splint See Rx Instructions .Route .MEDSUPPLY Qty: 1 0RF Rx Instructions: As directed pantoprazole 40 mg tablet,delayed release (DR/EC) 40 mg PO DAILY Qty: 90 8RF Hold Instructions: Resume on 12/21/22. Discharge Orders: Discharge ED (Routine); Ordered 04/28/23 Ordered By: Rich Renee Referrals: Elton Garcia MD [Primary Care Provider] - Discharge Diet: Usual diet Discharge Activity: Limit activity as instructed Patient Instructions: Mallet Finger Activity Restrictions/Additional Instructions: Thank you for visiting the emergency department. You were seen and evaluated for finger injury. The most likely cause of your symptoms is fracture with disruption of tendon. I will refer you for follow-up with orthopedics for further management. You may use yhej-yid-hbtwxlv medications such as acetaminophen and ibuprofen for pain however please do not exceed the daily recommended dosage as listed on the packaging and please keep in mind that many namebrand medications contain the same active ingredients. Please avoid these medications if previously instructed to do so by another physician due to other underlying medical condition. Please wear splint at all times. Return to the emergency department for uncontrolled symptoms, changes in color or feeling, or anything else that you are concerned about and feel needs emergency department evaluation. Coding Level of Care Code ED Hand Sizer for Benny Zaragoza
--- NOTE | 2023-04-28 07:34 | XRR_ITS ---
PROCEDURE INFORMATION: Exam: XR Right Finger(s) Exam date and time: 04/28/2023 7:38 AM Age: 32 years old Clinical indication: Injury or trauma; Blunt trauma (contusions or hematomas); Right; Middle finger; Injury date: 04/28/23; Injury details: 3rd digit pain and deformity after flag football game yesterday evening. ; Additional info: 3rd digit, pain, deformity TECHNIQUE: Imaging protocol: Radiologic exam of the right fingers. Views: Minimum 2 views. Total images: 1 COMPARISON: CR XR finger RT min 2V [id number] 12/28/2018 12:20 PM FINDINGS: Bones/joints: Irregular linear lucency at base of distal phalanx of 3rd digit felt to represent fracture with small avulsed fragment projecting dorsal to distal interphalangeal joint on lateral view. Soft tissues: Normal. XR/XR finger RT min 2V [id number] IMPRESSION: Irregular linear lucency at base of distal phalanx of 3rd digit felt to represent fracture with small avulsed fragment projecting dorsal to distal interphalangeal joint on lateral view.
[2023-04-28 08:13] VITALS: BP 146/87; PULSE 97; RESP 16; O2SAT 95
--- NOTE | 2023-04-28 08:18 | DCPLANNER ---
Addendum entered by Ena Ledezma 05/05/23 15:20: Patient had a follow up appointment scheduled with ortho - patient did attend appointment Original Note: manager parking had message to schedule a follow up appointment for patient with ortho. manager parking sent patients information to the front office staff at ortho. Patients information will be printed and reviewed. Clinic will call patient with appointment information.
== END 2023-04-28 08:16 | disposition home or self-care (01) ==
PROVIDERS: Emergency Provider Emergency Medicine; PCP Internal Medicine
DX: M20.011 Mallet finger of right finger(s) (principal)
CPT/HCPCS: 73140; 99283

== ENCOUNTER 2023-05-05 06:00 | Outpatient (CLI) | payer BC, SELFPAY | END 2023-05-05 06:01 | LOC: SOT 05-08 08:54 | PROVIDERS: PCP Internal Medicine; Visit Provider Student in an Organized Health Care Education/Training Program | DX: M20.011 Mallet finger of right finger(s) (principal) | CPT/HCPCS: 97760; L3925 ==

== ENCOUNTER → 2023-05-05 07:18 | Outpatient (BNVA) | payer BC, SELFPAY | PROVIDERS: PCP Internal Medicine; Referring Provider Emergency Medicine; Visit Provider Student in an Organized Health Care Education/Training Program | DX: M20.011 Mallet finger of right finger(s) (principal) | CPT/HCPCS: 73130 ==

== ENCOUNTER 2023-05-10 08:03 | Outpatient (CLI) | payer BC, SELFPAY ==
--- NOTE | 2023-05-10 08:00 | NM_ITS ---
WS: [id number] NUCLEAR MEDICINE HIDA SCAN CLINICAL INFORMATION: abdominal pain TECHNIQUE: Following intravenous administration of 7.7 mCi of technetium 99m mebrofenin, images of th e abdomen were obtained over the course of 60 minutes. Next, gallbladder ejection fraction was determ ined by obtaining preprandial and one-hour postprandial images of the gallbladder following oral ravi stion of Ensure. COMPARISON: None. FINDINGS: Normal hepatic uptake at 5 minutes. Gallbladder is visualized by 15 minutes. No evidence of acute cho lecystitis. Normal hepatic excretion. Normal common bile duct and small bowel activity. Gallbladder ejection fraction 96% within normal limits. No evidence of chronic cholecystitis. NM/NM hepatobiliary w phar* [id number] IMPRESSION: 1. No evidence of acute or chronic cholecystitis. 2. Gallbladder ejection fraction 96% within normal limits.
== END 2023-05-10 08:04 | disposition home or self-care (01) ==
PROVIDERS: PCP Internal Medicine; Visit Provider Surgery
DX: R10.9 Unspecified abdominal pain (principal)
CPT/HCPCS: 78227; A9537

== ENCOUNTER → 2023-06-30 07:13 | Outpatient (BNVA) | payer BC, SELFPAY | PROVIDERS: PCP Internal Medicine; Visit Provider Student in an Organized Health Care Education/Training Program | DX: M20.011 Mallet finger of right finger(s) (principal) | CPT/HCPCS: 73130 ==

== ENCOUNTER → 2024-04-12 08:00 | Outpatient (BNVA) | payer BC, SELFPAY | PROVIDERS: PCP Internal Medicine; Visit Provider Podiatrist Foot & Ankle Surgery | DX: M79.671 Pain in right foot (principal); M79.672 Pain in left foot; M95.8 Other specified acquired deformities of musculoskeletal system; M20.5X2 Other deformities of toe(s) (acquired), left foot | CPT/HCPCS: 73630 ==

== ENCOUNTER 2024-05-01 07:15 | Outpatient (CLI) | payer BC, SELFPAY ==
--- NOTE | 2024-05-01 07:15 | MR_ITS ---
WS: [id number] EXAMINATION: MR foot LT wo con* [id number] ORDER DATE: 05/01/2024 7:15 AM COMPARISON: None. HISTORY: Big toe pain CONTRAST: None. TECHNIQUE: Sagittal T1, sagittal STIR, coronal PD, coronal T2, axial T1, axial T2, and axial PD imagi ng with fat saturation technique. FINDINGS: Normal anatomic alignment. Bony edema within the base first big toe proximal phalanx medial ly along the plantar surface. This extends to the cortical surface and MTP articulation. Trace edema in the head of the first metatarsal. Small amount of fluid in the first MTP joint. Small amount of fl uid and edema at the first IP joint. Otherwise normal bone marrow signal in the remainder of the second through fifth phalanges and metata rsals. Normal visualized soft tissues. MR/MR foot LT wo con* [id number] IMPRESSION: 1. Bony edema involving the plantar base of the first proximal phalanx with tr lori edema in the head of the first metatarsal. Small amount of fluid in the MTP joint. Findings likely due to acute injury with bony contusion or repetitive m icrotrauma with reactive edema. Tiny stress fracture not excluded. 2. Small amount of fluid in the first IP joint. 3. No other acute findings.
== END 2024-05-01 07:17 | disposition home or self-care (01) ==
LOC: RAD 07:16
PROVIDERS: PCP Internal Medicine; Visit Provider Podiatrist Foot & Ankle Surgery
DX: M95.8 Other specified acquired deformities of musculoskeletal system (principal); M89.8X7 Other specified disorders of bone, ankle and foot
CPT/HCPCS: 73718

== ENCOUNTER 2024-09-16 20:56 | Emergency (ER) | payer BC, SELFPAY ==
[2024-09-16 20:59] VITALS: BP 163/91; PULSE 94; RESP 18; TEMP 36.8; O2SAT 100; BMI 31.3
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
[2024-09-16 21:05] VITALS: BP 133/70; PULSE 98; O2SAT 100
--- NOTE | 2024-09-16 21:10 | W.ED.EXTPRO ---
HPI - Extremity Problem General: Chief complaint: Extremity Injury, Lower Stated complaint: rt ft middle toe inj Time Seen by Provider: 09/16/24 21:00 Source: patient Mode of arrival: ambulatory Limitations: no limitations History of Present Illness: 34-year-old male states he is doing jujitsu and examination and injured his right third toe. He states he has pain he rates a 6 out of 10 he denies any other injury denies any foot or ankle pain. Associated symptoms: Deny chest pain, fever(s) or rash Related Data Previous Rx's Medication Instructions Recorded custom mallet finger splint #1 ea 05/05/23 methylprednisolone 4 mg tablets in See Rx Instructions PO PER PKG DIR 08/25/23 a dose pack (Medrol (Nathan)) #21 ea methylprednisolone 4 mg tablets in See Rx Instructions PO PER PKG DIR 04/12/24 a dose pack (Medrol (Nathan)) #21 ea Allergies Allergy/AdvReac Type Severity Reaction Status Date / Time No Known Allergies Allergy Verified 05/24/24 08:07 Review of Systems Const: Denies: fever(s), chills, body aches or change in appetite ENMT: Denies: throat pain or dental pain Card: Denies: chest pain Resp: Denies: dyspnea GI: Denies: abdominal pain, nausea, vomiting or diarrhea Musc: Reports: extremity pain; Denies: neck pain or back pain Skin/Breast: Denies: rash Neuro: Denies: headache(s) [facility] ED PFSH: Medical History GERD (gastroesophageal reflux disease) Bronchitis Tobacco abuse Family History Other CAD (coronary artery disease) Social History Smoking and tobacco/nicotine status: never used tobacco/nicotine Quit status (tobacco/nicotine): has quit using Alcohol intake: former Substance/Drug Use: never Household members: spouse and children Marital status: Physical Exam Const: COMMON NORMALS: no acute distress, patient oriented x3 and healthy appearing HENMT: COMMON NORMALS: normocephalic and atraumatic HEAD & SCALP: normocephalic and atraumatic Eye: COMMON NORMALS: conjunctivae normal CONJUNCTIVA: Yes conjunctivae normal Neck/C-Spine: COMMON NORMALS: full ROM Chest: COMMONS NORMALS: normal inspection of the chest Resp: COMMON NORMALS: normal respiratory effort Extremity: COMMON NORMALS: full ROM NARRATIVE EXTREMITY EXAM: Tenderness along with likely dislocation to third toe Neuro: COMMON NORMALS: patient oriented x3, moves all extremities and no focal motor deficits Psych: COMMON NORMALS: mental status grossly normal, Normal thought process present and cooperative THOUGHT PROCESS: Normal thought process present Skin: COMMON NORMALS: no rashes or lesions noted and no wounds GENERAL SKIN EXAM: no rashes or lesions noted Procedures Nerve Block Nerve Block 1: Time out performed: Yes Local Anesthetic: bupivacaine 0.5% Amount of anesthesia used (mL): 8 Side: right Nerve Blocks: digital (ring 3rd toe) Procedure Successful: Yes Patient Tolerated Procedure: well Complications: none Orthopedic Fracture Reduction Fracture #1: Time Out Performed: Yes Side: right Fracture Reduction Location: toe Analgesia: nerve block Technique: direct manipulation Post Reduction X-rays Demonstrate: acceptable reduction Post-reduction neuro exam: intact Post-reduction vascular exam: intact Splint Applied: Yes Patient Tolerated Procedure: well Course Vital Signs: Vital signs: Vital Signs Temperature 98.3 F 09/16/24 20:59 Pulse Rate 98 09/16/24 21:05 Respiratory Rate 18 09/16/24 20:59 Blood Pressure 133/70 09/16/24 21:05 Pulse Oximetry 100 09/16/24 21:05 Oxygen Delivery Me thod Room Air 09/16/24 21:05 MDM - Extremity (Nontraumatic) Medical Decision Making Patient presents for toe fracture with displacement did do a ring block dave taped it to the toe spoke to Dr. Ruiz who will follow up. Medical Records I reviewed the patient's medical records. XR interpretation done by ED provider, pending radiology final review ED provider radiology interpretation(s): X-ray right foot middle toe fracture of the proximal with displacement Discharge Plan Discharge Patient Disposition: Home Clinical Impression: Fracture of toe Qualifiers: Encounter type: initial encounter Toe: lesser toe Fracture type: closed Phalanx: proximal Fracture alignment: displaced Condition: Stable Prescriptions: No Action (DME) custom mallet finger splint See Rx Instructions .Route .MEDSUPPLY Qty: 1 0RF Rx Instructions: As directed methylprednisolone [Medrol (Nathan)] 4 mg tablets,dose pack See Rx Instructions PO PER PKG DIR Qty: 21 0RF Rx Instructions: PO PER PKG DIR for 6 days methylprednisolone [Medrol (Nathan)] 4 mg tablets,dose pack See Rx Instructions PO PER PKG DIR Qty: 21 0RF Rx Instructions: PO PER PKG DIR Discharge Orders: Discharge ED (Routine); Ordered 09/16/24 Ordered By: Xenia Echeverria Referrals: Clay Zazueta DPM [Physician] - 1-3 days Discharge Diet: Advance as tolerated Discharge Activity: Resume usual activity Patient Instructions: Toe Fracture (ED) Coding Level of Care Code ED Advanced Practice Registered Nurse for Benny Zaragoza
[2024-09-16] MEDS: BUPivacaine 0.5% INJ 10 mL INJECTION (21:35)
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
[2024-09-16 21:48] VITALS: BP 133/70; PULSE 71; O2SAT 98
== END 2024-09-16 21:45 | disposition home or self-care (01) ==
PROVIDERS: Emergency Provider Emergency Medicine
DX: S92.511A Displaced fracture of proximal phalanx of right lesser toe(s), initial encounter for closed fracture (principal); X58.XXXA Exposure to other specified factors, initial encounter
CPT/HCPCS: 28515; 73620; 73630; 99283; J3490

== ENCOUNTER 2024-09-17 15:47 | Outpatient (CLI) | payer BC, SELFPAY | END 2024-09-17 15:48 | disposition home or self-care (01) | LOC: SPT 15:50 | PROVIDERS: Visit Provider Podiatrist Foot & Ankle Surgery | DX: Z46.89 Encounter for fitting and adjustment of other specified devices (principal); S92.911D Unspecified fracture of right toe(s), subsequent encounter for fracture with routine healing; X58.XXXD Exposure to other specified factors, subsequent encounter | CPT/HCPCS: L3031 ==

== ENCOUNTER → 2024-10-15 08:18 | Outpatient (BNVA) | payer BC, SELFPAY | PROVIDERS: Visit Provider Podiatrist Foot & Ankle Surgery | DX: S92.911A Unspecified fracture of right toe(s), initial encounter for closed fracture (principal); M79.671 Pain in right foot; W22.09XA Striking against other stationary object, initial encounter | CPT/HCPCS: 73630 ==